=== PATIENT | female | born 1960 | race Caucasian/White ===

== ENCOUNTER 2019-12-27 07:45 | Day surgery (SDC) | payer MEDICARE ==
[2019-12-27] MEDS ORDERED: LIDOCAINE HCL 2% 100 MG/5 ML IJ ONE (07:46)
[2019-12-27] MEDS ORDERED: Depo-Medrol 40 MG/ML IM ONE (07:46)
[2019-12-27] MEDS ORDERED: DIPRIVAN 200 MG/20 ML IV ONE (09:20)
[2019-12-27] MEDS ORDERED: Ketamine HCl 50 MG/ML ONE (09:21)
--- NOTE | 2019-12-27 11:08 | XRAY ---
Indication: Bilateral L4-S1 MBB. Intraoperative fluoroscopy was provided for 8 seconds. Single digital spot image submitted for interpretation demonstrates posterior needle tips projecting over the expected course of the left and right L4-S1 nerve roots. Correlate with intraoperative findings/report.
--- NOTE | 2019-12-27 11:41 | XRAY ---
8 seconds fluoroscopy time in surgery for bilateral L4-S1 MBB.
[2019-12-27] MEDS ORDERED: Lactated Ringers 1,000 ML IV ONE (15:47)
== END 2019-12-27 09:42 | disposition home or self-care (01) ==
LOC: SDC-PAIN 07:45
PROVIDERS: ATTEND Psychiatry & Neurology Pain Medicine
DX: M47.816 Spondylosis without myelopathy or radiculopathy, lumbar region (principal); E11.9 Type 2 diabetes mellitus without complications; I10 Essential (primary) hypertension; J44.9 Chronic obstructive pulmonary disease, unspecified; F41.8 Other specified anxiety disorders; Z79.899 Other long term (current) drug therapy
CPT/HCPCS: 64493; 64494; 72020; 77002; 82962; J1030; J2704

== ENCOUNTER 2020-04-17 08:49 | Day surgery (SDC) | payer MEDICARE ==
[2020-04-17] MEDS ORDERED: Sodium Chloride 0.9(Preservative Free) 10 ML IJ ONE (08:50)
[2020-04-17] MEDS ORDERED: Depo-Medrol 40 MG/ML IM ONE (08:50)
[2020-04-17] MEDS ORDERED: Xylocaine 1% Vial 30 ML PF IJ ONE (08:50)
[2020-04-17] MEDS ORDERED: DIPRIVAN 200 MG/20 ML IV ONE (10:10)
[2020-04-17] MEDS ORDERED: Ketamine HCl 50 MG/ML ONE (10:10)
--- NOTE | 2020-04-17 10:51 | XRAY ---
Indication: Lumbar HELDER. Intraoperative fluoroscopy was provided for 30 seconds. 4 digital spot images submitted for interpretation demonstrates midline posterior needle tip projecting just posterior to L2. Small amount of contrast injected for needle tip placement. Correlate with intraoperative findings/report.
--- NOTE | 2020-04-17 10:54 | XRAY ---
30 seconds fluoroscopy time in surgery for lumbar HELDER.
[2020-04-17] MEDS ORDERED: Lactated Ringers 1,000 ML IV ONE (16:46)
== END 2020-04-17 10:45 | disposition home or self-care (01) ==
LOC: SDC-PAIN 08:49
PROVIDERS: ATTEND Psychiatry & Neurology Pain Medicine
DX: M54.16 Radiculopathy, lumbar region (principal); I10 Essential (primary) hypertension; E11.9 Type 2 diabetes mellitus without complications; J44.9 Chronic obstructive pulmonary disease, unspecified; F41.8 Other specified anxiety disorders; Z79.899 Other long term (current) drug therapy
CPT/HCPCS: 62323; 72100; 77003; 82947; 82962; J1030; J2001; J2704; Q9967

== ENCOUNTER 2020-05-22 08:05 | Day surgery (SDC) | payer MEDICARE ==
[~2020-05-22 08:05] MED LIST: DIPRIVAN 200 MG/20 ML IV ONE; Ketamine HCl 50 MG/ML ONE
[2020-05-22] MEDS ORDERED: Sodium Chloride 0.9(Preservative Free) 10 ML IJ ONE (08:06)
[2020-05-22] MEDS ORDERED: Depo-Medrol 40 MG/ML IM ONE (08:06)
--- NOTE | 2020-05-22 11:45 | XRAY ---
Indication: Left L4-S1 transforaminal HELDER. Intraoperative fluoroscopy was provided for 30 seconds. 4 digital spot images submitted for interpretation demonstrates posterior needle tips projecting over the expected left L4 and L5 nerve roots. Small amount of contrast injected for needle tip placement. Correlate with intraoperative findings/report.
--- NOTE | 2020-05-22 13:04 | XRAY ---
30 seconds fluoroscopy time in surgery for left L4-S1 transforaminal HELDER.
[2020-05-22] MEDS ORDERED: Lactated Ringers 1,000 ML IV ONE (15:28)
== END 2020-05-22 10:23 | disposition home or self-care (01) ==
LOC: SDC-PAIN 08:05
PROVIDERS: ATTEND Psychiatry & Neurology Pain Medicine
DX: M54.16 Radiculopathy, lumbar region (principal); E11.9 Type 2 diabetes mellitus without complications; I10 Essential (primary) hypertension; J44.9 Chronic obstructive pulmonary disease, unspecified; F41.8 Other specified anxiety disorders; Z79.899 Other long term (current) drug therapy
CPT/HCPCS: 64483; 64484; 72100; 77003; 82947; 82962; J1030; J2704; Q9966

== ENCOUNTER 2022-05-27 08:49 | Day surgery (SDC) | payer MEDICARE ==
[2022-05-27] MEDS ORDERED: Sensorcaine 0.25% 10 ML IJ ONE (08:50)
[2022-05-27] MEDS ORDERED: DIPRIVAN 200 MG/20 ML IV ONE (11:00)
--- NOTE | 2022-05-27 12:45 | XRAY ---
Indication: Bilateral L4-S1 MBB. Intraoperative fluoroscopy provided for 14 seconds. Single digital spot image submitted for interpretation demonstrates posterior needle tips projecting over the expected left and right L4-S1 nerve roots. Correlate with intraoperative findings/report.
--- NOTE | 2022-05-27 12:49 | XRAY ---
14 seconds fluoroscopy time in surgery for bilateral L4-S1 MBB.
[2022-05-27] MEDS ORDERED: Lactated Ringers 1,000 ML IV ONE (13:02)
== END 2022-05-27 11:25 | disposition home or self-care (01) ==
LOC: SDC-PAIN 08:49
PROVIDERS: ATTEND Psychiatry & Neurology Pain Medicine
DX: M47.816 Spondylosis without myelopathy or radiculopathy, lumbar region (principal); E11.9 Type 2 diabetes mellitus without complications; Z79.899 Other long term (current) drug therapy
CPT/HCPCS: 64493; 64494; 72020; 77002; 82947; J2704

== ENCOUNTER 2022-06-24 08:23 | Day surgery (SDC) | payer MEDICARE | END 2022-06-24 17:27 | disposition home or self-care (01) | LOC: SDC-PAIN 08:23 | PROVIDERS: ATTEND Psychiatry & Neurology Pain Medicine | DX: Z53.8 Procedure and treatment not carried out for other reasons (principal); E11.9 Type 2 diabetes mellitus without complications | CPT/HCPCS: 82947 ==

== ENCOUNTER 2022-07-08 10:41 | Day surgery (SDC) | payer MEDICARE ==
[2022-07-08] MEDS ORDERED: Depo-Medrol 40 MG/ML IM ONE (10:42)
[2022-07-08] MEDS ORDERED: LIDOCAINE HCL 1% 50 MG/5 ML VL PF IJ ONE (10:42)
[2022-07-08] MEDS ORDERED: Sodium Chloride 0.9(Preservative Free) 10 ML IJ ONE (10:42)
[2022-07-08] MEDS ORDERED: Lactated Ringers 1,000 ML IV ONE (13:28)
--- NOTE | 2022-07-08 13:58 | XRAY ---
Indication: Lumbar HELDER. Intraoperative fluoroscopy provided for 31 seconds. 3 digital spot images submitted for interpretation demonstrates posterior needle tip projecting just posterior to L1-L2 interspace. Small amount of contrast injected for needle tip placement. Correlate with intraoperative findings/report.
--- NOTE | 2022-07-08 16:32 | XRAY ---
31 seconds of fluoroscopy was used in surgery for a lumbar HELDER.
== END 2022-07-08 12:47 | disposition home or self-care (01) ==
LOC: SDC-PAIN 10:41
PROVIDERS: ATTEND Psychiatry & Neurology Pain Medicine
DX: M54.16 Radiculopathy, lumbar region (principal); E11.9 Type 2 diabetes mellitus without complications; Z79.899 Other long term (current) drug therapy
CPT/HCPCS: 62323; 72100; 77003; 82947; J1030; J2001; Q9966

== ENCOUNTER 2022-12-16 09:45 | Day surgery (SDC) | payer MEDICARE ==
[2022-12-16] MEDS ORDERED: BUPIVACAINE 0.5% VIAL IJ ONE ×2 (09:46)
[2022-12-16] MEDS ORDERED: DIPRIVAN 200 MG/20 ML IV ONE (11:41)
[2022-12-16] MEDS ORDERED: Lactated Ringers 1,000 ML IV ONE (12:07)
--- NOTE | 2022-12-16 13:45 | XRAY ---
Indication: Bilateral L4-S1 MBB. Intraoperative fluoroscopy provided for 12 seconds. Single digital spot image submitted for interpretation demonstrates posterior needle tips projecting over the expected left and right L4-S1 nerve roots. Correlate with intraoperative findings/report.
--- NOTE | 2022-12-16 15:13 | XRAY ---
12 seconds of fluoroscopy was used in surgery for a bilateral L4-S1 MBB.
== END 2022-12-16 12:13 | disposition home or self-care (01) ==
LOC: SDC-PAIN 09:45
PROVIDERS: ATTEND Psychiatry & Neurology Pain Medicine
DX: M47.816 Spondylosis without myelopathy or radiculopathy, lumbar region (principal); E11.9 Type 2 diabetes mellitus without complications; Z79.899 Other long term (current) drug therapy
CPT/HCPCS: 64493; 64494; 72020; 77002; 82947; J2704

== ENCOUNTER 2024-03-22 07:57 | Day surgery (SDC) | payer MEDICARE ==
[2024-03-22] MEDS ORDERED: BUPIVACAINE 0.5% VIAL IJ ONE (07:58)
[2024-03-22] MEDS ORDERED: DIPRIVAN 200 MG/20 ML IV ONE (09:37)
[2024-03-22] MEDS ORDERED: Xylocaine-Mpf 2% 5 Ml Vial ONE (09:38)
[2024-03-22] MEDS ORDERED: Lactated Ringers 1,000 ML IV ONE (09:40)
--- NOTE | 2024-03-22 13:01 | XRAY ---
12 seconds of fluoroscopy was used in surgery for a bilateral L4-S1 MBB.
== END 2024-03-22 10:05 | disposition home or self-care (01) ==
LOC: SDC-PAIN 07:57
PROVIDERS: ATTEND Psychiatry & Neurology Pain Medicine
DX: M47.816 Spondylosis without myelopathy or radiculopathy, lumbar region (principal); E11.9 Type 2 diabetes mellitus without complications
CPT/HCPCS: 64493; 64494; 72020; 77002; 82947; J2704

== ENCOUNTER 2024-08-24 08:53 | Day surgery (SDC) | payer MEDICARE ==
[2024-08-24] MEDS ORDERED: BUPIVACAINE 0.5% VIAL IJ ONE (08:54)
[2024-08-24] MEDS ORDERED: propofoL IV ONE (11:19)
--- NOTE | 2024-08-24 13:17 | XRAY ---
Indication: Bilateral L4-S1 MBB. Intraoperative fluoroscopy provided for 13 seconds. Single digital spot image submitted for interpretation demonstrates posterior needle tips projecting over expected left and right L4-S1 nerve roots. Correlate with intraoperative findings/report.
--- NOTE | 2024-08-24 14:52 | XRAY ---
13 seconds of fluoroscopy was used in surgery for a bilateral L4-S1 MBB.
== END 2024-08-24 11:57 | disposition home or self-care (01) ==
LOC: SDC-PAIN 08:53
PROVIDERS: ATTEND Psychiatry & Neurology Pain Medicine
DX: M47.816 Spondylosis without myelopathy or radiculopathy, lumbar region (principal); E11.9 Type 2 diabetes mellitus without complications
CPT/HCPCS: 64493; 64494; 72020; 77002; 82947; J2704

== ENCOUNTER 2024-10-04 08:25 | Day surgery (SDC) | payer MEDICARE ==
[2024-10-04] MEDS ORDERED: LIDOCAINE HCL 1% AMPUL 5 ML IJ ONE (08:26)
[2024-10-04] MEDS ORDERED: BUPIVACAINE 0.5% VIAL IJ ONE (08:26)
[2024-10-04] MEDS ORDERED: Depo-Medrol 40 MG/ML IM ONE (08:26)
[2024-10-04] MEDS ORDERED: propofoL IV ONE (09:58)
[2024-10-04] MEDS ORDERED: Lactated Ringers 1,000 ML IV ONE (10:22)
--- NOTE | 2024-10-04 11:40 | XRAY ---
25 seconds of fluoroscopy used in surgery for a right L4-S1 RFA.
--- NOTE | 2024-10-04 11:43 | XRAY ---
Indication: Right L4-S1 RFA. Intraoperative fluoroscopy provided for 25 seconds. 4 digital spot images submitted for interpretation demonstrates posterior needle tips projecting over expected right L4-S1 nerve roots. Correlate with intraoperative findings/report.
== END 2024-10-04 10:35 | disposition home or self-care (01) ==
LOC: SDC-PAIN 08:25
PROVIDERS: ATTEND Psychiatry & Neurology Pain Medicine
DX: M47.817 Spondylosis without myelopathy or radiculopathy, lumbosacral region (principal); E11.9 Type 2 diabetes mellitus without complications
CPT/HCPCS: 64635; 64636; 72100; 82947; J2704

== ENCOUNTER 2024-10-05 08:18 | Day surgery (SDC) | payer MEDICARE ==
[2024-10-05] MEDS ORDERED: Depo-Medrol 40 MG/ML IM ONE (08:19)
[2024-10-05] MEDS ORDERED: BUPIVACAINE 0.5% VIAL IJ ONE (08:19)
[2024-10-05] MEDS ORDERED: LIDOCAINE HCL 1% AMPUL 5 ML IJ ONE (08:19)
[2024-10-05] MEDS ORDERED: propofoL IV ONE (10:33)
[2024-10-05] MEDS ORDERED: Xylocaine-Mpf 2% 5 Ml Vial ONE (10:37)
--- NOTE | 2024-10-05 12:08 | XRAY ---
18 seconds of fluoroscopy used in surgery for a left L4-S1 RFA.
--- NOTE | 2024-10-05 12:09 | XRAY ---
Indication: Left L4-S1 RFA. Intraoperative fluoroscopy provided for 18 seconds. 3 digital spot image submitted for interpretation demonstrates posterior needle tips projecting over expected left L4-S1 nerve roots. Correlate with intraoperative findings/report.
[2024-10-05] MEDS ORDERED: Lactated Ringers 1,000 ML IV ONE (13:09)
== END 2024-10-05 11:13 | disposition home or self-care (01) ==
LOC: SDC-PAIN 08:18
PROVIDERS: ATTEND Psychiatry & Neurology Pain Medicine
DX: M47.817 Spondylosis without myelopathy or radiculopathy, lumbosacral region (principal); E11.9 Type 2 diabetes mellitus without complications
CPT/HCPCS: 64635; 64636; 72100; 82947; J2704